=== PATIENT | male | born 1980 | race Caucasian/White ===

== ENCOUNTER 2021-04-05 07:46 | Day surgery (SDC) | payer OTHER ==
[~2021-04-05] VITALS: Ht 180.3 cm; Wt 109.0 kg
[2021-04-05] VITALS (7 sets, daily range): BP systolic 109–182; BP diastolic 66–116
--- NOTE | 2021-04-05 08:00 | NUR ---
DR. ZAARTE IN TO SEE PATIENT AND DR. JOSEPH IN TO SEE PATIENT
--- NOTE | 2021-04-05 08:45 | NUR ---
PATIENT ESCORTED TO ROOM BY ANR NURSE ALANIZ AT THIS TIME. 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 ROOM SAFETY GIVEN PATIENT DENIES ANY NEEDS AT THIS TIME SIDERAILS ARE UP X 2 CALL LIGHT WITHIN REACH. ANR NURSE KONSTANTIN IN WITH PATIENT.
--- NOTE | 2021-04-05 11:59 | NUR ---
PATIENT RESTING IN BED AT THIS TIME. PATIENT DENIES ANY NEEDS AND IS WAITING AND READY TO GO TO [facility]R PROCEEDURE AT THIS TIME.
--- NOTE | 2021-04-05 14:00 | NUR ---
PATIENT REMAINS IN [facility]R PROCEEDURE
--- NOTE | 2021-04-05 16:15 | NUR ---
PATIENT REMAINS IN [facility] PROCEEDURE OFF FLOOR
[2021-04-05 16:29] LABS: HEMATOCRIT 47.3 % (39.0-50.0); HEMOGLOBIN 14.5 g/dl (14.0-18.0); IMMATURE GRANULOCYTES 0.1 % (0.0-5.0); MEAN CELL VOLUME 85.8 fL CALC (80.0-100.0); MEAN CORPUSCULAR HGB 26.3 pG CALC (26.0-32.0); MEAN CORPUSCULAR HGB CONC 30.7 g/dL CAL (32.0-36.0); NEUT# 6.07 thou/uL (1.82-7.42); RED BLOOD COUNT 5.51 mill/uL (4.70-6.10); RED CELL DISTRI WIDTH 18.3 % (11.5-15.5)
[2021-04-05 16:30] LABS: ALKALINE PHOSPHATASE 65 u/l (38-126); ANION GAP 11 (6-22 (CALC)); BILIRUBIN, TOTAL 0.6 mg/dL (0.0-1.4); BUN 9 mg/dL (9-20); BUN/CREATININE RATIO 10 (12-20 (CALC)); CARBON DIOXIDE 29 mmol/l (22-30); CHLORIDE 101 mmol/l (95-108); CREATININE 0.9 mg/dL (0.7-1.3); GFR > 60 ML/MIN (>=60 (CALC)); GFR FOR AFR.AMER. > 60 ML/MIN (>=60 (CALC)); POTASSIUM 3.9 mmol/l (3.5-5.1); SGOT/AST 58 u/l (17-59); SODIUM 137 mmol/l (137-146); TOTAL PROTEIN 7.8 g/dL (6.3-8.2)
[2021-04-06 03:30] VITALS: BP 156/94
[2021-04-06 05:42] LABS: ALBUMIN 3.5 g/dL (3.2-5.0); ALKALINE PHOSPHATASE 64 u/l (38-126); ANION GAP 11 (6-22 (CALC)); BILIRUBIN, TOTAL 0.8 mg/dL (0.0-1.4); BUN 10 mg/dL (9-20); BUN/CREATININE RATIO 12 (12-20 (CALC)); CARBON DIOXIDE 24 mmol/l (22-30); CHLORIDE 102 mmol/l (95-108); CREATININE 0.9 mg/dL (0.7-1.3); GFR > 60 ML/MIN (>=60 (CALC)); GFR FOR AFR.AMER. > 60 ML/MIN (>=60 (CALC)); POTASSIUM 4.1 mmol/l (3.5-5.1); SGOT/AST 23 u/l (17-59); SODIUM 133 mmol/l (137-146); TOTAL PROTEIN 6.7 g/dL (6.3-8.2)
--- NOTE | 2021-04-06 06:38 | NUR ---
PATIENT LAYING IN BE YELLING OUT AND SCREAMING CALM PATIENT DOWN STATES NO PAIN. ALERT AND ORIENTED X 3 CALL LIGHT IS WITHIN.
[2021-04-06 07:57] VITALS: BP 114/59
--- NOTE | 2021-04-06 11:57 | NUR ---
PATIENT LAYING IN BED AT THIS TIME. PATIENT STATING HE FEELS "SICK" NO NOTED VOMITTING AT THIS TIME. PATIENT ENCOURAGE TO GET UP TO EAT PATIENT STATED "I'LL TRY" PATIENT STATES "I WANT TO GO HOME " . CALLED AT THIS TIME AND WAS TRANSFER TO [facility] ANR NURSE AT THIS TIME. SIDERAILS ARE UP CALL LIGHT WITHIN REACH.
[2021-04-06 12:20] VITALS: BP 182/98
--- NOTE | 2021-04-06 12:27 | NUR ---
THIS NURSE REACHED OUT TO DR. JOSEPH AT THIS TIME DUE TO ABNORMAL VITAL SIGNS AND NAUESA AND VOMITTING THAT PATIENT WAS HAVING. WENT TO TRAUMA ROOM TO SPEAK TO ANR NURSES AT THIS TIME REGARDING HOW TO GET A HOLD OF DR. OPAL ALANIZ ANR NURSE STATED DR. JOSEPH IS OFF SITE SEEING A PATINET AT THIS TIME AND THAT HE WILL TRY AND REACH HIM.
--- NOTE | 2021-04-06 13:05 | NUR ---
DR. JOSEPH CALLED BACK AND ORDERS OBTAINED.
--- NOTE | 2021-04-06 14:02 | NUR ---
3 PRESCRIPTION SCRIPTS PULLED FROM [facility]YX[facility] GIVEN TO DR JOSEPH PER VERBAL ORDERS FOR D/C HOME MEDICATIONS
--- NOTE | 2021-04-06 16:00 | NUR ---
PATIENT UP TO SHOWER AT THIS TIME PATIENT ASSISTED WITH SHOWER AND DRESSING HIMSELF. PATIENT UP IN CHAIR DRINKING GATORADE AT THIS TIME. DR. JOSEPH IN TO SEE PATIENT. DR. JOSEPH GIVEN INFORMATION ABOUT PATIENTS BLOOD PRESSURE READING AND NO ORDERS GIVEN AT THIS TIME.
[2021-04-06 16:43] VITALS: BP 193/88
== END 2021-04-06 17:43 | disposition home or self-care (01) | DRG 897 ==
LOC: ANR 07:46 → MS2 07:55 → ANR 11:09
PROVIDERS: Nurse Practitioner; ATTEND Anesthesiology
DX: F11.20 Opioid dependence, uncomplicated (principal)
CPT/HCPCS: J2060; J2354